=== PATIENT | female | born 1995 | race African-American/Black ===

== ENCOUNTER 2021-08-16 17:32 | Emergency (ER) | payer OTHER, SELFPAY ==
--- NOTE | ~2021-08-16 | XR_ITS ---
EXAMINATION: XR toe 1st RT min 2V EXAM DATE: 08/16/2021 17:49 INDICATION: Initial encounter following injury, with pain of the right 1st toe. TECHNIQUE: Right 1st toe frontal, lateral and oblique projections obtained and reviewed. There is no prior study for comparison. FINDINGS: There is acute closed posttraumatic nondisplaced fracture through the right 1st distal phal anx, with lucency identified extending toward the interphalangeal joint. No displacement. There is ov erlying soft tissue swelling. IMPRESSION: Nondisplaced right 1st distal phalangeal fracture, could be intra-articular. Reviewed, dictated and finalized at location [facility]. [facility] IMPRESSION: Nondisplaced right 1st distal phalangeal fracture, could be intra-a rticular.
[2021-08-16 17:49] VITALS: BP 119/71; PULSE 65; RESP 20; TEMP 37; O2SAT 100
--- NOTE | 2021-08-16 18:01 | ED.GENADULT ---
HPI - General Adult General Chief complaint: Extremity Injury, Lower Stated complaint: right foot great toe injury Source: patient Mode of arrival: ambulatory Limitations: no limitations History of Present Illness HPI narrative: Patient is a 26-year-old -[place]ong[place] female presents to the [facility] via POV for evaluation of a right great toe injury that occurred today. Patient reports she was jogging up steps when she accidentally hit one of the steps causing her toe to hyperflex. Pain is intermittent and sore in nature. Ibuprofen provides some relief and weightbearing increases pain. Related Data Home Medications Medication Instructions Recorded Confirmed No Home Medications 08/16/21 08/16/21 Allergies Allergy/AdvReac Type Severity Reaction Status Date / Time No Known Allergies Allergy Unknown Unverified 04/17/17 15:43 Review of Systems Review of Systems: Pertinent negatives: fever, chills, sweats, change in appetite, poor p.o. intake, malaise, calf tenderness, skin color changes, rash, warmth, swelling, numbness, tingling, loss of sensation, deformity, decreased range of motion, weakness, difficulty with ambulation/coordination, nausea, vomiting, lymphadenopathy, shortness of breath, chest pain, heart palpitations, and heart murmur. PMFSH Comments I have reviewed and agree with the patient's past medical, surgical, social, and family hx as documented by the RN. There is no relevant family history pertinent to the presenting complaint. Exam Narrative: GENERAL: Well-appearing, well-nourished, and in no acute distress. HEAD: Normocephalic, atraumatic. NECK: Supple. No Lymphadenopathy or nuchal rigidity appreciated. CHEST: Bilateral lung moy are clear to auscultation. No respiratory distress. No evidence of cough or pleuritic cp upon examination. HEART: Regular rate and rhythm. No murmur, gallop, or rub heard. EXTREMITIES: Mild generalized pain elicited to right great toe with all active and passive ROM. No evidence of injury, decreased ROM, swelling, cyanosis, hematoma, laceration, abrasion, deformity, rash, or puncture. No evidence of dislocation, ligament laxity, effusion, or pain at rest. Pulses palpable at 2+, strength 5/5, and cap refill < 3 seconds in affected extremity. DTRs normal. Ambulates with right-sided limp. SKIN: Warm, dry, no rash. NEURO: No focal deficits. Alert and oriented x3. SPECIAL OBSERVATIONS: Smiling. Laughing. Course Vital Signs Vital signs: Vital Signs Temperature 98.6 F 08/16/21 17:49 Pulse Rate 65 08/16/21 17:49 Respiratory Rate 20 08/16/21 17:49 Blood Pressure 119/71 08/16/21 17:49 Pulse Oximetry 100 08/16/21 17:49 Temperature 98.6 F 08/16/21 17:49 Pulse Rate 65 08/16/21 17:49 Respiratory Rate 20 08/16/21 17:49 Blood Pressure 119/71 08/16/21 17:49 Pulse Oximetry 100 08/16/21 17:49 Procedures Orthopedic Splinting/Casting Injury #1: Splinting/Casting Date: 08/16/21 Splinting/Casting Time: 18:19 Side: right Lower Extremity Injury Location: toe (right great toe) Lower Extremity Immobilizer: briana tape Pre-Procedure Neuro Vascular Exam: normal Post-Procedure Neuro Vascular Exam: normal Medical Decision Making Differential Diagnosis Differential Diagnosis: Sprain, strain, cellulitis, open fracture, closed fracture, gout Medical Records Medical records reviewed: Yes I reviewed the external patient's medical records. Vital Signs Vital Signs: Vital Signs Temperature 98.6 F 08/16/21 17:49 Pulse Rate 65 08/16/21 17:49 Respiratory Rate 20 08/16/21 17:49 Blood Pressure 119/71 08/16/21 17:49 Pulse Oximetry 100 08/16/21 17:49 Temperature 98.6 F 08/16/21 17:49 Pulse Rate 65 08/16/21 17:49 Respiratory Rate 20 08/16/21 17:49 Blood Pressure 119/71 08/16/21 17:49 Pulse Oximetry 100 08/16/21 17:49 Imaging Data Attestation: I personally reviewed and interpreted t
== END 2021-08-16 18:29 | disposition home or self-care (01) ==
PROVIDERS: Emergency Provider Nurse Practitioner Family
DX: S92.424A Nondisplaced fracture of distal phalanx of right great toe, initial encounter for closed fracture (principal); W22.8XXA Striking against or struck by other objects, initial encounter
CPT/HCPCS: 73660; 99214; G0463

== ENCOUNTER 2022-03-26 02:20 | Emergency (ER) | payer OTHER, SELFPAY ==
--- NOTE | ~2022-03-26 | CT_ITS ---
EXAMINATION: CT brain wo con DATE: 03/26/2022 03:31 INDICATION: Head injury, pain over the vertex at site of injury. TECHNIQUE: Computed tomography (CT) of the head was performed without intravenous contrast. The mA wa s adjusted according to patient size. Iterative reconstruction technique was employed. Exam dose: 68 1.00 mGy-cm total exam DLP. COMPARISON: None FINDINGS: No intracranial mass lesion or hemorrhage or cerebrovascular accident. Normal hinojosa-white ma tter differentiation. Normal ventricular size. No subdural or epidural hematoma. No skull fracture or bone destruction. The mastoid air cells are well-developed and aerated. Included paranasal sinuses are unremarkable. IMPRESSION: No skull fracture or significant intracranial abnormality Reviewed, dictated and finalized at [facility]. Reviewed, dictated and finalized at location [facility].
[2022-03-26 02:21] VITALS: BP 130/74; PULSE 106; RESP 20; TEMP 37.3; O2SAT 100
[2022-03-26] MEDS: TETANUS,DIPHTHERIA,AC PERTUSSIS ADULT (0.5 ML) BOOSTRIX IM (02:45)
[2022-03-26] MEDS: ACETAMINOPHEN 500 MG TABLET 1000 MG PO (02:46)
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
[2022-03-26] MEDS: KETOROLAC 30 MG/ML VIAL (*BKC) IM (03:59)
[2022-03-26 04:19] VITALS: PULSE 74; RESP 16; O2SAT 98
== END 2022-03-26 04:21 | disposition home or self-care (01) ==
PROVIDERS: Emergency Provider Emergency Medicine
DX: S00.01XA Abrasion of scalp, initial encounter (principal); W22.8XXA Striking against or struck by other objects, initial encounter; Z23 Encounter for immunization
CPT/HCPCS: 70450; 90471; 90715; 96372; 99284; A9270; J1885

== ENCOUNTER 2023-06-01 16:08 | Emergency (ER) | payer OTHER, SELFPAY ==
[2023-06-01 16:20] VITALS: BP 114/71; PULSE 77; RESP 16; TEMP 36.2; O2SAT 100
--- NOTE | 2023-06-01 16:36 | ED.EYEPROB ---
HPI - Eye Problem General Chief complaint: Eye Problems Stated complaint: right eye red Time Seen by Provider: 06/01/23 16:36 Source: patient Mode of arrival: ambulatory Limitations: no limitations History of Present Illness HPI Narrative: 27-year-old female presents with complaint of drainage, redness and itching to right eye. Symptoms started this morning. No vision changes. Patient wears contacts. Changes them almost always weekly. All systems reviewed and negative except as noted above. Related Data Allergies Allergy/AdvReac Type Severity Reaction Status Date / Time No Known Allergies Allergy Unknown Verified 06/01/23 16:20 Review of Systems Review of Systems: CONSTITUTIONAL: Denies fever, chills, or sweats. EYES: Denies visual changes . Reports redness, discharge from right eye with itching. ENT: Denies rhinorrhea, congestion, sore throat, or otalgia. CARDIOVASCULAR: Denies chest pain, palpitations, or edema. RESPIRATORY: Denies cough or dyspnea. GASTROINTESTINAL: Denies abdominal pain, nausea, vomiting, or diarrhea. GENITOURINARY: Denies dysuria or hematuria. SKIN: Denies rash or itching. MUSCULOSKELETAL: Denies back pain, joint pain, or myalgia. NEUROLOGIC: Denies headache, numbness, or weakness. PSYCHIATRIC: Denies anxiety or depression. All other systems reviewed are negative, except as documented in HPI. PMFSH Comments At time of signature, agree with nursing past medical, surgical, social and family history. There is no relevant family history pertinent to the presenting complaint. Exam Narrative: GENERAL: This is a well-nourished, well-developed patient, in no apparent distress. HEAD: normocephalic, atraumatic. EYES: PERRL. Sclera Conjunctiva of right eye erythematous. Purulence drainage from right eye. Left eye is normal. Vision is grossly intact. EARS: External ears normal NOSE: External nose normal NECK: Neck supple, non-tender without lymphadenopathy, masses or thyromegaly. CARDIOVASCULAR: Regular rate and rhythm without murmurs, gallops, or rubs. RESPIRATORY: Clear to auscultation. Breath sounds equal bilaterally. No wheezes, rales, or rhonchi. SKIN: warm, Dry, intact with no suspicious lesions or rash, good texture and turgor. NEURO: awake, alert, and oriented to person, place and time. There were no obvious focal neurologic abnormalities. EXTREMITIES: No joint tenderness, effusion, or edema noted. Course Course Level of Care: Express Care Visit Vital Signs Vital signs: Vital Signs Temperature 36.2 C L 06/01/23 16:20 Pulse Rate 77 06/01/23 16:20 Respiratory Rate 16 06/01/23 16:20 Blood Pressure 114/71 06/01/23 16:20 Pulse Oximetry 100 06/01/23 16:20 Oxygen Delivery Room Air 06/01/23 16:20 Temperature 36.2 C L 06/01/23 16:20 Pulse Rate 77 06/01/23 16:20 Respiratory Rate 16 06/01/23 16:20 Blood Pressure 114/71 06/01/23 16:20 Pulse Oximetry 100 06/01/23 16:20 Oxygen Delivery Room Air 06/01/23 16:20 Reviewed MDM - Eye Problem MDM Narrative Medical decision making narrative: Patient is aware of diagnosis, understands and agrees to treatment plan. Anticipatory guidance given. Patient agrees to follow-up as directed and is aware of reasons to seek care at the emergency department. Portions of this record may have been created with voice recognition software Differential Diagnosis Differential diagnosis: Likely conjunctivitis Discharge Plan Discharge Clinical Impression: Acute bacterial conjunctivitis of right eye Patient Disposition: Home, Self-Care Condition: Stable Instructions: Antibiotic Form, Conjunctivitis (ED) Additional Instructions: Please antibiotic eyedrops as prescribed. Wash hands before and after placing antibiotic eyedrops. Avoid wearing contacts until all symptoms have resolved. For any worsening of your symptoms see an retail performance specialist. Prescriptions: New ofloxacin 0.3 %
== END 2023-06-01 16:45 | disposition home or self-care (01) ==
PROVIDERS: Emergency Provider Nurse Practitioner Family
DX: H10.31 Unspecified acute conjunctivitis, right eye (principal)
CPT/HCPCS: 99213; G0463

== ENCOUNTER 2024-02-20 11:01 | Emergency (ER) | payer OTHER, SELFPAY ==
[2024-02-20 11:11] VITALS: BP 118/72; PULSE 94; RESP 16; TEMP 37.6; O2SAT 99
--- NOTE | 2024-02-20 11:21 | ED.URI ---
HPI - URI/Sore Throat General Chief Complaint: Upper Respiratory Infection Stated Complaint: throat hurts Time Seen by Provider: 02/20/24 11:39 Source: patient and RN notes reviewed Mode of arrival: ambulatory Limitations: no limitations History of Present Illness HPI Narrative: 28-year-old female presents concern for sore throat, body aches for 3 days. Reports exposure to strep. She denies cough, runny nose, stuffy nose, fever. MD elicited complaint: sore throat Related Data Allergies Allergy/AdvReac Type Severity Reaction Status Date / Time No Known Allergies Allergy Unknown Verified 02/20/24 11:16 Review of Systems Review of Systems: CONSTITUTIONAL: Denies malaise, chills, sweats, or fever. EYES: Denies visual changes, redness, or discharge. ENT: Reports rhinorrhea, congestion, sinus pain, otalgia. Reports sore throat. CARDIOVASCULAR: Denies chest pain, palpitations, or edema. RESPIRATORY: Denies cough. Denies dyspnea. GASTROINTESTINAL: Denies abdominal pain, nausea, vomiting, diarrhea SKIN: Denies rash or itching. MUSCULOSKELETAL: Reports myalgia. NEUROLOGIC: Reports headache. All systems reviewed & are unremarkable except as noted in HPI and below PMFSH Comments At time of signature, agree with nursing past medical, surgical, social and family history. There is no relevant family history pertinent to the presenting complaint Exam Narrative: GENERAL: Well-appearing, well-nourished, and in no acute distress. HEAD: Normocephalic EYES: PERRLA, conjunctivae clear ENT: Nares clear. Mucous membranes moist. TM pearly hinojosa with dull light reflex bilaterally; no tragal tenderness. Oropharynx erythematous without lesions. Tonsils enlarged and without exudate, no drooling, no hoarseness, no trismus, uvula midline. NECK: Supple. No lymphadenopathy CHEST: Clear to auscultation, breath sounds equal. No wheezing, rhonchi, rales, or stridor. No respiratory distress, speaks in full sentences. HEART: Regular rate and rhythm. No murmur heard. SKIN: Warm, dry, no rash. NEURO: Alert and oriented x3. PSYCH: Normal mood and affect Course Course Emergency Course: Patient is aware of diagnosis, understands and agrees to treatment plan. Anticipatory guidance given. Patient agrees to follow-up as directed and is aware of reasons to seek care at the emergency department. Portions of this record may have been created with voice recognition software Level of Care: Express Care Visit Vital Signs Vital signs: Vital Signs Temperature 99.7 F H 02/20/24 11:11 Pulse Rate 94 02/20/24 11:11 Respiratory Rate 16 02/20/24 11:11 Blood Pressure 118/72 02/20/24 11:11 Pulse Oximetry 99 02/20/24 11:11 Oxygen Delivery Room Air 02/20/24 11:11 Temperature 99.7 F H 02/20/24 11:11 Pulse Rate 94 02/20/24 11:11 Respiratory Rate 16 02/20/24 11:11 Blood Pressure 118/72 02/20/24 11:11 Pulse Oximetry 99 02/20/24 11:11 Oxygen Delivery Room Air 02/20/24 11:11 Reviewed. MDM - URI/Sore Throat MDM Narrative Medical decision making narrative: Differential diagnosis considered: Boland virus, strep pharyngitis, allergic rhinitis, upper respiratory tract infection, sinusitis, rhinosinusitis, nasopharyngitis. viral pharyngitis, otitis media, otitis externa, pneumonia, bronchitis, viral cough syndrome, viral syndrome, and influenza. Exam findings show no acute concerns or changes; patient is non-toxic appearing and is in no distress. Patient is appropriate for outpatient treatment and follow-up. Lab Data Attestation: I reviewed the patient's lab results. Critical Care Time Critical Care Time Critical Care Time: No Discharge Plan Discharge Clinical Impression: Acute streptococcal pharyngitis Patient Disposition: Home, Self-Care Condition: Stable Instructions: Antibiotic Form, Strep Throat (ED) Additional Instructions: -Take the medication as prescribed. Throw away the toothbrush after 24hours o
== END 2024-02-20 11:51 | disposition home or self-care (01) ==
PROVIDERS: Emergency Provider Nurse Practitioner
DX: J02.0 Streptococcal pharyngitis (principal)
CPT/HCPCS: 87880; 99213; G0463